=== PATIENT | male | born 1975 | race Two or more races ===

== ENCOUNTER 2018-07-31 18:07 | Emergency (ER) | payer OTHER ==
[~2018-07-31] VITALS: Ht 165.1 cm; Wt 70.3 kg
[2018-07-31 19:01] VITALS: BP 115/62
== END 2018-07-31 19:02 | disposition home or self-care (01) ==
LOC: ER 18:09
DX: R55 Syncope and collapse (principal)
CPT/HCPCS: 93005; A4663